=== PATIENT | female | born 1990 | race American Indian/Alaskan Native ===

== ENCOUNTER 2018-05-08 17:26 | Emergency (ER) | payer MEDICAID ==
[2018-05-08] MEDS ORDERED: SOLU-Medrol IM ONE (22:02)
[2018-05-08] MEDS ORDERED: MORPHINE IM ONE (22:02)
--- NOTE | 2018-05-08 22:09 | Emergency Department Report ---
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 Patient states she is utilizing Neurontin and diclofenac at home, does not controlling this pain flareup seeks further treatment options. She reports no fever, chills, sweats, palpitations, nausea, vomiting, dysuria. MD Complaint: back pain -: Gradual, year(s) (3) Similar Symptoms Previously: Yes Place: home Radiation: none Severity: mild Quality: dull Consistency: constant Improves With: movement Context: turning/twisting, bending - Related Data Previous Rx's Medication Instructions Recorded Last Taken Type ALBUTEROL NEB's [Proventil 0.083% 2.5 mg IH TID PRN #25 vial 03/31/13 08/31/13 Rx NEBS] Albuterol Sulfate [Ventolin HFA] 2 puff IH Q4H PRN #1 hfa.aer.ad 03/31/13 Rx predniSONE [Deltasone] 10 mg PO .TAPER #21 tab 08/31/13 Unknown Rx Ipratropium [Atrovent] 0.5 mg IH Q6H PRN #25 ml 09/03/13 Unknown Rx Ondansetron [Zofran Odt] 4 mg PO Q6H PRN #8 tab.rapdis 09/03/13 Unknown Rx predniSONE [Deltasone] 50 mg PO QDAY #5 tab 05/08/18 Unknown Rx Allergies Allergy/AdvReac Type Severity Reaction Status Date / Time No Known Allergies Allergy Verified 09/03/13 09:57 ED Review of Systems ROS: Stated complaint: BACK LEG PAIN Other details as noted in HPI Constitutional: denies: chills, fever Eyes: denies: eye pain, eye discharge, vision change ENT: denies: ear pain, throat pain Respiratory: denies: cough, shortness of breath, wheezing Cardiovascular: denies: chest pain, palpitations Endocrine: no symptoms reported Gastrointestinal: denies: abdominal pain, nausea, diarrhea Genitourinary: denies: urgency, dysuria, discharge Musculoskeletal: back pain. denies: joint swelling, arthralgia Skin: denies: rash, lesions Neurological: denies: headache, weakness, paresthesias Psychiatric: denies: anxiety, depression Hematological/Lymphatic: denies: easy bleeding, easy bruising ED Past Medical Hx - Past Medical History Hx Arthritis: Yes Hx Asthma: Yes Additional medical history: anemia, DJD in lower back - Surgical History Past Surgical History?: No - Social History Smoking Status: Current Every Day Smoker Substance Use Type: None - Medications Home Medications: Home Medications Medication Instructions Recorded Confirmed Last Taken Type ALBUTEROL NEB's [Proventil 0.083% 2.5 mg IH TID PRN #25 vial 03/31/13 09/03/13 08/31/13 Rx NEBS] Albuterol Sulfate [Ventolin HFA] 2 puff IH Q4H PRN #1 hfa.aer.ad 03/31/1308/31/13 Rx predniSONE [Deltasone] 10 mg PO .TAPER #21 tab 08/31/13 09/03/13 Unknown Rx Ipratropium [Atrovent] 0.5 mg IH Q6H PRN #25 ml 09/03/13 Unknown Rx Ondansetron [Zofran Odt] 4 mg PO Q6H PRN #8 tab.rapdis 09/03/13 Unknown Rx predniSONE [Deltasone] 50 mg PO QDAY #5 tab 05/08/18 Unknown Rx ED Physical Exam - General Limitations: No Limitations General appearance: alert, in no apparent distress - Head Head exam: Present: atraumatic, normocephalic - Eye Eye exam: Present: normal appearance - ENT ENT exam: Present: mucous membranes moist - Neck Neck exam: Present: normal inspection - Respiratory Respiratory exam: Present: normal lung sounds bilaterally. Absent: respiratory distress - Cardiovascular Cardiovascular Exam: Present: regular rate, normal rhythm. Absent: systolic murmur, diastolic murmur, rubs, gallop - GI/Abdominal GI/Abdominal exam: Present: soft, normal bowel sounds - Extremities Exam Extremities exam: Present: normal inspection - Back Exam Back exam: Present: normal inspection, tenderness, paraspinal tenderness, other (negative straight leg raise). Absent: CVA tenderness (R), CVA tenderness (L), rash noted - Neurological Exam Neurological exam: Present: alert, oriented X3, CN II-XII intact - Psychiatric Psychiatric exam: Present: normal affect, normal mood - Skin Skin exam: Present: warm, dry, intact, normal color. Absent: rash ED Course Vital Signs 05/08/18 05/08/18 18:13 22:33 Temperature 98.1 F Pulse Rate 108 H 88 Respiratory 18 17 Rate Blood Pressure 143/92 Blood Pressure 116/78 [Left] O2 Sat by Pulse 99 Oximetry ED Medical Decision Making - Medical Decision Making Discussed with patient chronic back pain and management compliance. Discussed the findings of the examination and in the history and physical. Patient has been educated on treatment as well as the possible need for rehabilitation. Advised follow-up with orthopedic for for evaluation and treatment recommendations. Critical care attestation.: If time is entered above; I have spent that time in minutes in the direct care of this critically ill patient, excluding procedure time. ED Disposition Clinical Impression: Chronic back pain Disposition: DC-01 TO HOME OR SELFCARE Is pt being admited?: No Does the pt Need Aspirin: No Condition: Stable Instructions: Chronic Back Pain (ED) Prescriptions: predniSONE [Deltasone] 50 mg PO QDAY #5 tab Referrals: PRIMARY CARE, [Primary Care Provider] - 3-5 Days
[2018-05-08 22:35] VITALS: BP 116/78
== END 2018-05-08 22:33 | disposition home or self-care (01) ==
LOC: ED 17:26
DX: M54.5 Low back pain (principal); G89.29 Other chronic pain; J45.909 Unspecified asthma, uncomplicated; M19.90 Unspecified osteoarthritis, unspecified site; F17.200 Nicotine dependence, unspecified, uncomplicated; Z86.2 Personal history of diseases of the blood and blood-forming organs and certain disorders involving the immune mechanism; Z79.899 Other long term (current) drug therapy
CPT/HCPCS: 96372; 99282; J2270; J2930

== ENCOUNTER 2021-08-28 12:11 | Emergency (ER) | payer MEDICAID ==
[2021-08-28 12:42] VITALS: BP 135/82
== END 2021-08-28 23:14 | disposition left against medical advice (07) ==
LOC: ED 12:11
DX: M54.9 Dorsalgia, unspecified (principal); Z53.21 Procedure and treatment not carried out due to patient leaving prior to being seen by health care provider

== ENCOUNTER 2021-11-19 21:41 | Emergency (ER) | payer MEDICAID ==
[2021-11-19 21:58] VITALS: BP 151/91
== END 2021-11-20 01:45 | disposition left against medical advice (07) ==
LOC: ED 21:41
DX: O46.90 Antepartum hemorrhage, unspecified, unspecified trimester (principal); Z53.21 Procedure and treatment not carried out due to patient leaving prior to being seen by health care provider; Z3A.00 Weeks of gestation of pregnancy not specified

== ENCOUNTER 2022-02-24 08:52 | Outpatient (CLI) | payer OTHER ==
--- NOTE | 2022-02-24 15:58 | XRay Report ---
CERVICAL SPINE 3 VIEWS INDICATION: DEGENERATIVE DISC DISEASE/BACK PAIN COMPARISON: None. FINDINGS: No acute, displaced fracture is seen. Alignment is within normal limits. There is disc space narrowing at L5-S1. IMPRESSION: 1. No acute findings. 2. Degenerative changes, as above. LUMBAR SPINE 3 VIEWS INDICATION: DEGENERATIVE DISC DISEASE/BACK PAIN COMPARISON: None. FINDINGS: No acute, displaced fracture is seen. Alignment is within normal limits. Disc space height is maintained. No significant degenerative changes. IMPRESSION: 1. No acute findings. 2. Discogenic degenerative change at the lumbosacral junction. 3. SI joints are not well visualized due to overlying bowel gas. If there is concern for sacroiliitis , CT or MRI should be considered. Signer Name: Erlin Guallpa MD Signed: 02/24/2022 3:53 PM Workstation Name: [id number]
== END 2022-02-24 08:53 | disposition home or self-care (01) ==
LOC: XRAY 08:52
PROVIDERS: ATTEND Internal Medicine
DX: M47.812 Spondylosis without myelopathy or radiculopathy, cervical region (principal); M47.817 Spondylosis without myelopathy or radiculopathy, lumbosacral region
CPT/HCPCS: 72040; 72100